=== PATIENT | male | born 1950 | race Caucasian/White ===

== ENCOUNTER → 2018-03-08 | Outpatient (CLI) | payer MEDICARE, BC ==
[~2018-03-08] MED LIST: ASPI1TAB57 PO; GLUC100013 PO; IBUP200T47 PO; LATA0.002 EACH EYE; LISI10TA3 PO; MULT-65 PO; PSYLPOW4 PO; VITA200T10 PO; VITA500C18 PO
[2018-03-08 12:14] LABS: HEMATOCRIT 45.3 % (39.0-51.0); HEMOGLOBIN 15.6 GM/DL (13.0-17.0); MEAN CELL VOLUME 92.5 FL (80.0-100.0); MEAN CORPUSCULAR HEMOGLOBIN 31.9 PG (27.0-34.0); MEAN CORPUSCULAR HGB CONC 34.5 % (32.0-36.0); MEAN PLATELET VOLUME 7.5 FL (7.0-11.0); PLATELET COUNT 185 TH/MM3 (150-450); RED CELL DISTRIBUTION WIDTH 13.3 % (11.6-17.2); WHITE BLOOD COUNT 9.9 TH/MM3 (4.0-11.0)
[2018-03-08 12:18] LABS: BILIRUBIN, URINE NEG (NEG); BLOOD, URINE NEG (NEG); GLUCOSE,URINE NEG (NEG); HYALINE CAST, URINE 2 /lpf (RARE); KETONE, URINE TRACE mg/dL (NEG); MUCUS URINE FEW /lpf (OCC); NITRITE,URINE NEG (NEG); PH, URINE 5.5 (5.0-8.5); URINE COLOR YELLOW (YELLW/STRAW); URINE LEUKOCYTE ESTERASE NEG (NEG)
[2018-03-08 12:42] LABS: CALCIUM 9.5 MG/DL (8.5-10.1); CREATININE 0.98 MG/DL (0.60-1.30)
--- NOTE | 2018-03-08 19:35 | EKG ---
Date Performed: 03/08/2018 Time Performed: 11:37:10 PTAGE: 67 years EKG: Sinus rhythm NORMAL ECG NO PREVIOUS TRACING DOCTOR: Salomon Lloyd Interpretating Date/Time 03/08/2018 19:31:23
== END ==
LOC: CPRE 11:16
PROVIDERS: ATTEND Orthopaedic Surgery
DX: Z01.812 Encounter for preprocedural laboratory examination (principal); Z01.810 Encounter for preprocedural cardiovascular examination; M79.609 Pain in unspecified limb; M17.11 Unilateral primary osteoarthritis, right knee; I10 Essential (primary) hypertension
CPT/HCPCS: 36415; 80048; 81001; 85027; 85610; 85730; 93005

== ENCOUNTER 2018-03-19 05:20 | Inpatient (IN) | payer MEDICARE, BC ==
[~2018-03-19] VITALS: Ht 180.3 cm; Wt 113.2 kg
[~2018-03-19 05:20] MED LIST changes: -LATA0.002 EACH EYE
[2018-03-19] MEDS ORDERED: LATA0.002 EACH EYE (05:43)
[2018-03-19] MEDS ORDERED: SODIUM CHLORID 0.9% 500 ML IV PRN (05:45)
[2018-03-19] MEDS ORDERED: LACTATED RINGER'S 1000 ML IV PRN (05:45)
[2018-03-19] MEDS ORDERED: CHLORHEXIDINE GLUCONATE 4% SOLN 120 ML BTL TOPICAL SCH (05:45)
[2018-03-19] MEDS ORDERED: ceFAZolin 2 GM PREMIX 50 ML IV SCH (05:45)
[2018-03-19] MEDS ORDERED: METOPROLOL TARTRATE 25 MG TAB PO PRN (05:45)
[2018-03-19] MEDS ORDERED: CHLORHEXIDINE GLUCONATE 2 % 1 PACK (2 CLOTHS) TOPICAL PRN (05:45)
[2018-03-19] MEDS ORDERED: POVIDONE IODINE 5% (ANTISEPSIS KIT) 4 APPLICATIONS EACH NARE PRN (05:45)
[2018-03-19] MEDS ORDERED: FAT EMULSION 20% INJ 0 ML ONE (05:57)
[2018-03-19] MEDS ORDERED: TRANEXAMIC ACID IV SCH ×2 (06:00→10:00)
[2018-03-19] MEDS ORDERED: SODIUM CHLORIDE 0.9% IV SCH ×2 (06:00→10:00)
[2018-03-19] MEDS ORDERED: EXPAREL PERI-ARTICULAR INJECTION (TOTAL VOL. 100 ML) P-ARTICULR SCH ×2 (06:00)
[2018-03-19 06:03] VITALS: PULSE 90
[2018-03-19] MEDS ORDERED: MIDAZOLAM HCL 2 MG/2 ML VIAL ONE (06:07)
[2018-03-19] MEDS ORDERED: BUPIVACAINE LIPOSOME PF 1.3% 20 ML VIAL ONE (06:08)
[2018-03-19] MEDS ORDERED: GENTAMICIN SULFATE 80 MG/2 ML VIAL ONE (06:19)
[2018-03-19] MEDS ORDERED: ACETAMINOPHEN 1000 MG/100 ML 100 ML IV ONE (06:21)
[2018-03-19] MEDS ORDERED: FAMOTIDINE 20 MG/2 ML VIAL ONE (06:21)
[2018-03-19] MEDS ORDERED: ACETAMINOPHEN/HYDROcodone 325 MG/7.5 MG TAB PO PRN (09:30)
[2018-03-19] MEDS ORDERED: TRANEXAMIC ACID INJ 0 MG in SODIUM CHLORIDE 0.9% INJ 100 ML IV SCH (09:30)
[2018-03-19] MEDS ORDERED: ONDANSETRON HCL 4 MG/2 ML VIAL IVP PRN (09:30)
[2018-03-19] MEDS ORDERED: PSYLLIUM PO PRN (09:30)
[2018-03-19] MEDS ORDERED: ZOLPIDEM TARTRATE 5 MG TAB PO PRN (09:30)
[2018-03-19] MEDS ORDERED: MORPHINE SULFATE 4 MG/ML INJ IV PUSH PRN (09:30)
[2018-03-19] MEDS ORDERED: MAGNESIUM HYDROXIDE SUSP 30 ML CUP PO PRN (09:30)
--- NOTE | 2018-03-19 09:38 | PD.OP ---
Operative Report Date of Surgery: Mar 19, 2018 Preoperative Diagnosis: (1) Primary osteoarthritis of right knee Postoperative Diagnosis: (1) Primary osteoarthritis of right knee Procedure: Right total knee arthroplasty using Max Triathlon prosthesis (noncemented). Anesthesia: General endotracheal with supplemental adductor canal block regional and local with Exparel Surgeon: Home Mary MD Wood Heel Cementer(s): Jimmy Ward MD Operation and Findings: Indications and Findings: This 67-year-old man has had long-standing right knee arthritis that has been progressively worsening over the past several years. He had an anterior cruciate ligament reconstruction in the past. He has an ambulation tolerance now 1 block because of pain and has difficulty with stairs. He is only able to stand about 45 minutes because of the pain. Treatment has included anti-inflammatory agents and analgesics, activity modification, exercises and external supports. Physical findings showed scars about the knee with laxity especially medially, crepitation throughout the entire range of motion and tenderness in the knee. X-rays show severe osteoarthritis of the knee with loss of articular cartilage to bone on bone particularly in the medial compartment with tricompartmental osteophytes and evidence of prior anterior cruciate ligament reconstruction. Operative findings: There is severe osteoarthritis in the right knee with loss of articular cartilage to bone on bone in the medial compartment, erosion of the lateral femoral condyle and loss of articular cartilage there. In addition the patellofemoral articulation showed significant degenerative change with large osteophytes and cartilaginous disruption. Tunnels were evident from his reconstruction. The prosthesis used was a Max Triathlon prosthesis. The femur was a size 5, cruciate retaining, uncemented. The tibial baseplate was a size 6 Tritanium with a 11 mm, X3 polyethylene, cruciate retaining spacer. The patella was a size 35 mm asymmetric Tritanium backed. The cement was Symplex.. The patient was brought to the clean-air operating suite. A general endotracheal anesthetic was administered as well as a regional anesthetic by abductor canal block. The position was supine with a small bolster under the hip on the operative side. A pneumatic tourniquet was applied to the upper thigh. The lower extremity was then prepped with alcohol, Hibiclens and ChloraPrep and draped in the usual manner with the knee draped free. An appropriate timeout procedure was carried out. An incision was made from about 3 fingerbreadths above the superior medial pole of patella down the tibial tubercle on the medial side. The incision was deepened through the subcutaneous tissue to the retinacular structures which were exposed medially and laterally. A medial retinacular incision was then made from the superior middle pole of patella down the tibial tubercle and up into the quadriceps tendon splitting it longitudinally and the medial one third. The patella was reflected. The infrapatellar fat pad was debulked. The anterior cruciate ligament was excised. Medial and lateral meniscectomies were initiated. Fenestrations were made in the distal femur and proximal tibia for intramedullary referencing guides. The distal femoral cutting guide and jig were then assembled for a 5, 8 mm cut. When this was fit position and placed cutting block was stabilized with pins. The jig was removed. The distal femoral cut was then completed with the oscillating saw. The sizing guide was then positioned in place along Whitesides line and the epicondylar axis and stabilized with pins. The femoral size was then determined as noted above. The 4-in-1 cutting block was then positioned in place. Anterior and posterior cuts were made followed by posterior and anterior chamfer cuts taking care to prevent injury to ligamentous structures. Osteophytes were then trimmed from the distal femur. A bone plug was then placed into the fenestration of the distal femur. The proximal tibia was then exposed. The medial and lateral meniscectomies were completed. The proximal tibial cutting guide was then positioned in place and stabilized with a pin for rotation. The depth of cut was then verified with a stylus off the lateral side. The cutting block was stabilized with pins. The jig was removed. The depth of cut was then verified and adjusted appropriately with the use of the spacer block. The proximal tibial cut was then made with the oscillating saw taking care to prevent injury to neurovascular and ligamentous structures. Proximal tibial bone was removed. Local anesthetic was administered with Exparel in the posterior capsule. The tibial baseplate trial was then positioned in place. After verifying the appropriate size, the base plate trial was positioned in place along with its spacer. The femoral component was then impacted into place. The alignment was checked. The tibial baseplate was then pinned in place on the tibia. Attention was directed to the patella. The patella drill guide was positioned in place for the appropriate sized patella. Patellar drilling was then carried out. The trial patella was positioned in place. The knee was taken through a range of motion which was easily 0 extension to 140 with pressure and 135 with gravity. The patella trial was removed. The femoral drill holes were made. The femoral trials were removed. The tibial spacer was removed. A bone plug was placed into the proximal tibia. The tibial punch was impacted through the proximal tibial punch guide. This was all removed followed by placement of the tibial drill guide. The tibial drill holes were then made. The guide was removed. The cut ends of bone were then cleaned with pulse lavage. The tibial baseplate was then impacted into place and seated appropriately. The spacer was inserted. The the femoral component was then impacted into place and seated appropriately. The patella component was then seated with the patellar vice and tightened appropriately. This was not tightened as well as would be expected. It was then removed. After cleansing the fenestrations, a trial of placement of the patella was again carried out however this was not as tight as it should have been. For this reason, it was decided to cement the patella. The patella was cleaned with pulse lavage and then dried. The implant was cemented to the posterior surface of the patella and held with a patella clamp. The knee was taken through a range of motion which was comparable to the previous range of motion with excellent stability in flexion and extension and appropriate patellofemoral tracking. The remainder of the Exparel was then injected throughout the knee as a local anesthetic. Drains were brought out the superior lateral aspect of the suprapatellar pouch. Wound closure then commenced using 0 Vicryl interrupted [id number] sutures for the capsular and fascial structures, 2-0 Vicryl interrupted simple sutures with buried knots for the subcutaneous tissues and 4-0 Monocryl, tenuous subcuticular closure for the skin. The wound was then dressed with Dermabond Prineo followed by Optifoam silver impregnated dressing. Sterile soft roll with a cooling pad and Dao bandage from the base of the toes to mid thigh were then applied. Patient was then transferred from the operating room to the recovery room in satisfactory condition having tolerated procedure well. Counts are correct. Specimens: None. Estimated blood loss: 300 mL Carla Mary MD ([place]) Mar 19, 2018 09:38
[2018-03-19] MEDS ORDERED: HYDR-3580 PO (09:44)
[2018-03-19] MEDS ORDERED: ECASA81 PO (09:44)
--- NOTE | 2018-03-19 09:49 | HHI.FF ---
Face to Face Verification Diagnosis: (1) Status post total right knee replacement Physical Therapy Gait training Knee: Total knee, Protocol: Right, Gait training, Full weight bearing Right LE Weight Bearing: WB as tolerated Right LE Range of Motion: Active ROM (Active, active assisted and passive range of motion. Range of motion goal is 0 extension to 135 of flexion.) Nursing Nursing: Dressing changes Dressing Changes: Daily dressing change, Coverderm/Primapore Additional Instructions Do not remove Dermabond Prineo. I have seen patient James De La Cruz on 03/19/18. My clinical findings support the need for the requested home health care services because: Ltd mobility - disease progression Limited ability to care for self High risk of falls I certify that my clinical findings support that this patient is homebound because: Post-op weakness Unsteady gait/balance Unsafe to leave home unassisted Carla Mary MD ([place]) Mar 19, 2018 09:49
[2018-03-19] MEDS ORDERED: *morphine SULFATE 4 MG/ML PERIprocedure ONLY ONE ×2 (10:00→10:10)
--- NOTE | 2018-03-19 10:53 | RADRPT ---
EXAM DATE/TIME: 03/19/2018 11:19 [place] COMPARISON: No previous studies available for comparison. INDICATIONS : Post-op right knee. MEDICAL HISTORY : None. SURGICAL HISTORY : None. ENCOUNTER: Initial ACUITY: 1 day PAIN SCORE: 0/10 LOCATION: Right Knee. FINDINGS: 2 views of the knee show a total knee prosthesis in good position. No fracture or dislocation is obse rved. Soft tissue swelling is noted. Surgical drain observed. CONCLUSION: Knee arthroplasty in good position. Erasmo Rojas Jr., MD on March 19, 2018 at 10:50 Board Certified Radiologist. This report was verified electronically.
[2018-03-19] MEDS ORDERED: LACTATED RINGER'S 1000 ML INJ 2,000 ML IV ONE (12:00)
[2018-03-19] MEDS ORDERED: NEOSTIGMINE 5 MG/5 ML SYRINGE IV PUSH ONE (12:00)
[2018-03-19] MEDS ORDERED: LIDOCAINE HCL 1% PF 5 ML AMPULE OTHER ONE (12:00)
[2018-03-19] MEDS ORDERED: ROCURONIUM INJ 50 MG/5 ML SYRINGE IV PUSH ONE (12:00)
[2018-03-19] MEDS ORDERED: DEXAMETHASONE SOD PHOS 4 MG/ML VIAL IV ONE (12:00)
[2018-03-19] MEDS ORDERED: ePHEDrine/NS 25 MG/5 ML SYRINGE IV ONE (12:00)
[2018-03-19] MEDS ORDERED: GLYCOPYRROLATE 1 MG/5 ML SYRINGE IV PUSH ONE (12:00)
[2018-03-19] MEDS ORDERED: PROPOFOL 200 MG/20 ML AMP IV ONE (12:00)
[2018-03-19] MEDS ORDERED: KETOROLAC TROMETHAMINE 30 MG/ML (IVP) VIAL IV PUSH ONE (12:00)
[2018-03-19] MEDS ORDERED: ONDANSETRON HCL 4 MG/2 ML VIAL IV ONE (12:00)
[2018-03-19] MEDS ORDERED: PHENYLEPH/NS 1000 MCG/10 ML SYR IV ONE (12:00)
[2018-03-19] MEDS: ACETAMINOPHEN/HYDROcodone 325 MG/7.5 MG TAB PO PRN (12:04)
[2018-03-19] MEDS: LACTATED RINGER'S 1000 ML INJ 1,000 ML IV SCH (12:06)
[2018-03-19] MEDS ORDERED: Post-op Orders (for Pharmacy) XX ONE (12:10)
[2018-03-19] MEDS ORDERED: DO NOT ADM ANY ANTICOAGULANT DRUGS PRN (13:00)
[2018-03-19] MEDS: KETOROLAC TROMETHAMINE 30 MG/ML (IVP) VIAL IVP SCH ×2 (15:00→21:56)
--- NOTE | 2018-03-19 15:31 | PD.CONS ---
[facility] Hospitalists Consult Requested By Dr. Mary Reason for Consult Medical management Primary Care Physician Vasquez [facility] Diagnoses: (1) Hypertension (2) Primary osteoarthritis of right knee (3) Status post total right knee replacement History of Present Illness The patient is a 67-year-old male admitted for right total knee arthroplasty. Hospitalist consult was requested for medical management. Patient states that his only medical problem is hypertension, which is well controlled. He denies pain currently. Denies nausea, vomiting, chest pain, dyspnea. Review of Systems Constitutional: DENIES: Fever, Chills, Night Sweats Eyes: DENIES: Blurred vision, Vision loss Ears, nose, mouth, throat: DENIES: Hearing loss Respiratory: DENIES: Cough, Wheezing, Sputum production, Shortness of breath Cardiovascular: DENIES: Chest pain, Palpitations, Dyspnea on Exertion, Lower Extremity Edema Gastrointestinal: DENIES: Abdominal pain, Constipation, Diarrhea, Nausea, Vomiting Genitourinary: DENIES: Urinary frequency, Urinary incontinence, Urgency, Hematuria, Dysuria, Nocturia Musculoskeletal: COMPLAINS OF: Joint pain, DENIES: Muscle aches Integumentary: DENIES: Pruritus, Rash Hematologic/lymphatic: DENIES: Bruising Neurologic: DENIES: Headache Past Family Social History Allergies: Coded Allergies: No Known Allergies (Unverified , 03/19/18) Past Medical History Hypertension Glaucoma Past Surgical History Tonsillectomy Right knee arthroscopic surgery Right total knee arthroplasty, 03/19/18 Reported Medications Lisinopril 10 mg daily Aspirin 81 mg daily Ibuprofen as needed Latanoprost eyedrops nightly Psyllium powder as needed Vitamin C daily Vitamin E daily Multivitamin daily Glucosamine daily Family History Heart disease Father had throat cancer Mother had emphysema. Social History Denies tobacco or illicit drug use. Drinks 3-4 alcoholic beverages per day. Physical Exam Vital Signs Vital Signs Date Time Temp Pulse Resp B/P (MAP) Pulse Ox O2 Delivery O2 Flow Rate FiO2 03/19/18 11:00 80 15 112/71 (85) 100 Nasal Cannula 2 03/19/18 10:45 76 15 110/76 (87) 100 Nasal Cannula 2 03/19/18 10:30 71 17 120/74 (89) 100 Nasal Cannula 3 03/19/18 10:15 70 15 111/66 (81) 98 Nasal Cannula 3 03/19/18 10:00 72 15 122/68 (86) 98 Nasal Cannula 3 03/19/18 09:48 97.7 85 15 128/62 (84) 100 Nasal Cannula 3 03/19/18 06:03 90 03/19/18 06:03 Nasal Cannula 2 03/19/18 05:45 99.4 87 18 164/96 (118) 98 Physical Exam GENERAL: Well-nourished, well-developed male in no acute distress. Sitting up in a chair. HEENT: Normocephalic, atraumatic. Pupils equal, round and reactive. Extraocular movements intact. No scleral icterus. No injection or drainage. Oropharynx is clear. Mucous membranes are moist. CARDIOVASCULAR: Regular rate and rhythm without murmurs, gallops, or rubs. RESPIRATORY: Clear to auscultation. No wheezes, rales, or rhonchi. Breathing is non-labored. GASTROINTESTINAL: Abdomen soft, non-tender, nondistended. EXTREMITIES: No lower extremity edema. No calf tenderness. Right lower extremity bandaged. SCD on left lower extremity. PSYCH: Alert and oriented x 3. Imaging Last Impressions Knee X-Ray 03/19/18920 Signed Impressions: Service Date/Time: Monday, March 19, 2018 11:19 - CONCLUSION: Knee arthroplasty in good position. Erasmo Rojas Jr., MD Assessment and Plan Assessment and Plan 1. Osteoarthritis, right knee: Status post right total knee arthroplasty. Management per orthopedic surgery. Continue pain control, physical therapy, bowel regimen. 2. Hypertension: Blood pressure is well controlled. Continue lisinopril. 3. Glaucoma: Continue Xalatan eyedrops. 4. DVT prophylaxis: Aspirin. Ladarius Olsen MD Mar 19, 2018 15:31
[2018-03-19 15:52] VITALS: O2SAT 95
[2018-03-19 15:53] VITALS: O2SAT 99
[2018-03-19 16:00] VITALS: BP 109/70; PULSE 91; RESP 18; TEMP 98.7; O2SAT 95
[2018-03-19 20:30] VITALS: BP 116/70; PULSE 88; RESP 16; TEMP 98.1; O2SAT 97
[2018-03-19] MEDS ORDERED: LATANOPROST 0.005% OPHT SOLN 2.5 ML BTL EACH EYE SCH (21:00)
[2018-03-20 00:10] VITALS: BP 118/68; PULSE 81; RESP 16; TEMP 97.3; O2SAT 98
[2018-03-20] MEDS: ACETAMINOPHEN/HYDROcodone 325 MG/7.5 MG TAB PO PRN ×2 (01:41→07:24)
[2018-03-20] MEDS: LACTATED RINGER'S 1000 ML INJ 1,000 ML IV SCH (01:45)
[2018-03-20] MEDS: KETOROLAC TROMETHAMINE 30 MG/ML (IVP) VIAL IVP SCH ×2 (03:48→07:26)
[2018-03-20 04:30] VITALS: BP 98/55; PULSE 83; RESP 16; TEMP 97.4; O2SAT 96
--- NOTE | 2018-03-20 06:59 | PD.ORT.PN ---
Subjective Post Op Day #: 1 Subjective Remarks He is doing well. He has minimal complaints related to his knee. He indicates that the physical therapist was more apprehensive about him walking than he was. Range of Motion Not recorded. Distance Walked 10 feet with PT limited by dizziness followed by 185 feet and then again 25 feet. Objective Vitals Vital Signs Date Time Temp Pulse Resp B/P (MAP) Pulse Ox O2 Delivery O2 Flow Rate FiO2 03/20/18 04:30 97.4 83 16 98/55 (69) 96 03/20/18 00:10 97.3 81 16 118/68 (85) 98 03/19/18 20:30 98.1 88 16 116/70 (85) 97 03/19/18 16:00 98.7 91 18 109/70 (83) 95 03/19/18 15:53 99 21 03/19/18 15:52 95 21 03/19/18 11:45 98.4 82 17 127/75 (92) 100 Nasal Cannula 2 03/19/18 11:30 84 15 120/73 (89) 100 Nasal Cannula 2 03/19/18 11:00 80 15 112/71 (85) 100 Nasal Cannula 2 03/19/18 10:45 76 15 110/76 (87) 100 Nasal Cannula 2 03/19/18 10:30 71 17 120/74 (89) 100 Nasal Cannula 3 03/19/18 10:15 70 15 111/66 (81) 98 Nasal Cannula 3 03/19/18 10:00 72 15 122/68 (86) 98 Nasal Cannula 3 03/19/18 09:48 97.7 85 15 128/62 (84) 100 Nasal Cannula 3 I/O 03/19/18 03/19/18 03/19/18 03/20/18 03/20/18 03/20/18 07:00 15:00 23:00 07:00 15:00 23:00 Intake Total 2320 ml 480 ml Output Total 350 ml 120 ml 300 ml Balance 1970 ml -120 ml 180 ml Intake Oral 120 ml 480 ml IV Total 2000 ml Other 200 ml Output Urine Total 0 ml 300 ml Drainage Total 50 ml 120 ml Estimated Blood Loss 300 ml # Bowel Movements 0 Imaging Last 24 hours Impressions Knee X-Ray 03/19/18 0921 Signed Impressions: Service Date/Time: Monday, March 19, 2018 11:19 - CONCLUSION: Knee arthroplasty in good position. Erasmo Rojas Jr., MD Objective Remarks He is sitting out of bed in a chair comfortably. His neurovascular status is intact. The dressing is dry and intact. Assessment & Plan Ortho Post Op Day #: 1 Problem List: (1) Primary osteoarthritis of right knee ICD Codes: M17.11 - Unilateral primary osteoarthritis, right knee Status: Resolved (2) Status post total right knee replacement ICD Codes: Z96.651 - Presence of right artificial knee joint Plan: Continue postop care and PT. Assessment and Plan Condition: Good. Orthopedically stable. DVT prophylaxis: TEDs, aspirin, sequentials. Discharge plans: Home with home health care. An appointment was scheduled through the office. Prescriptions: [place] 7.5/325 Carla Mary MD ([place]) Mar 20, 2018 06:59
[2018-03-20 07:06] LABS: HEMATOCRIT 31.9 % (39.0-51.0); HEMOGLOBIN 11.3 GM/DL (13.0-17.0)
--- NOTE | 2018-03-20 07:33 | HHI.DS ---
Discharge Summary Admission Date Mar 19, 2018 at 05:20 Discharge Date: Mar 20, 2018 Admitting Diagnosis Primary osteoarthritis, right knee. Diagnosis: (1) Primary osteoarthritis of right knee Diagnosis: Principal ICD Codes: M17.11 - Unilateral primary osteoarthritis, right knee Status: Resolved (2) Status post total right knee replacement Diagnosis: Principal ICD Codes: Z96.651 - Presence of right artificial knee joint Procedures Right total knee arthroplasty using [place] Triathlon prosthesis (uncemented) on 03/19/2018. Brief History This is a 67 year old male patient has had long-standing arthritis in his right knee unresponsive to conservative measures as detailed in the history and physical examination. He had genu varum with medial laxity and palpable osteophytes. X-rays show loss of articular cartilage to [id number] medial compartment with osteophytes and eburnation. CBC/BMP: 03/20/18 0446 Significant Findings Laboratory Tests Test 03/20/18 04:46 Hemoglobin 11.3 GM/DL (13.0-17.0) Hematocrit 31.9 % (39.0-51.0) Imaging Last 72 hours Impressions Knee X-Ray 03/19/18 0921 Signed Impressions: Service Date/Time: Monday, March 19, 2018 11:19 - CONCLUSION: Knee arthroplasty in good position. Erasmo Rojas Jr., MD PE at Discharge He is sitting out of bed in a chair comfortably. His neurovascular status is intact. The dressing is dry and intact. Hospital Course The patient was admitted as noted above. The above noted operative procedure was carried out that day. Preoperatively prophylactic antibiotics were administered Ancef according to protocol. These were continued postoperatively. The patient also received tranexamic acid to help with hemostasis according to protocol. In the postanesthesia care unit a continuous passive motion device was initiated. Also initiated were mechanical methods of DVT prophylaxis in the form of LAMONT stockings and sequentials. Physical therapy was initiated on the day of surgery. On postoperative day #1 physical therapy continued. The use of the continuous passive motion device continued. DVT prophylaxis with aspirin 81 mg twice daily was initiated at this time. The patient continued physical therapy throughout the hospitalization. The distance walked and range of motion improved throughout the hospitalization. The patient was discharged on postoperative day 1 with the disposition being to home with home health care. An appointment for follow-up was made prior to admission. Pt Condition on Discharge: Good Discharge Disposition: Disch w/ Home Health Serv Discharge Instructions Diet Instructions: As Tolerated, No Restrictions Activities You Can Perform: Full Weight Bearing, Shower Only-No Bath Activities to Avoid: Lifting/Bending, Strenuous Activity, Bathing, Driving Follow up Referrals: Orthopedics with Carla Mary MD ([place]) New Medications: Aspirin (Aspirin DR) 81 Mg Tabdr 81 MG PO BID for Prevent Blood Clot for 30 Days, #60 TAB Hydrocodone/Acetaminophen (Hydrocodone-Acetamin 7.5-325) 7.5 Mg-325 Mg Tablet 1 TAB PO Q4H PRN for PAIN SCALE 1 TO 10, #30 TAB Continued Medications: Ascorbic Acid ER (Vitamin C Sr) 500 Mg Caper 500 MG PO DAILY for Nutritional Supplement, CAP 0 Refills Glucosamine (Glucosamine) 1,000 Mg Cap 2000 MG PO DAILY for Herbal Supplements, CAP 0 Refills Ibuprofen (Ibuprofen) 200 Mg Tab 200 MG PO Q4H PRN for PAIN SCALE 1 TO 10, TAB 0 Refills Latanoprost Opth Drops (Latanoprost Opth Drops) 0.005% Drops 1 DROP EACH EYE HS for Glaucoma, #2.5 ML 0 Refills Refrigerate until opened. Lisinopril (Lisinopril) 10 Mg Tab 10 MG PO DAILY, #30 TAB 0 Refills Multiple Vitamin (Multi-Vitamin Daily) 1 Tab Tab 1 TAB PO DAILY for Nutritional Supplement, TAB 0 Refills Psyllium Powder (Psyllium Powder) 100 % Pow 1 SCOOP PO TID PRN for CONSTIPATION, CONTAINER 0 Refills 1 rounded TEASPOON in 8 oz of liquid at the first sign of irregularity. Vitamin E Mixed (Vitamin E) 200 Unit Tablet 1 TAB PO DAILY Discontinued Medications: Aspirin (Aspirin 81) 81 Mg Tabdr 81 MG PO DAILY, TAB 0 Refills Carla Mary MD ([place]) Mar 20, 2018 07:33
[2018-03-20 08:02] VITALS: BP 126/78; PULSE 82; RESP 17; TEMP 98.3; O2SAT 99
[2018-03-20] MEDS ORDERED: ASPIRIN EC 81 MG TABEC PO SCH (08:45)
[2018-03-20] MEDS ORDERED: NON-FORMULARY DRUG (Ascorbic Acid ER (Vitamin C Sr) 500 MG) PO SCH (09:00)
[2018-03-20] MEDS ORDERED: VITAMIN E MIXED PO SCH (09:00)
[2018-03-20] MEDS ORDERED: LISINOPRIL 10 MG TAB PO SCH (09:00)
[2018-03-20] MEDS ORDERED: MULTIVITAMIN TAB PO SCH (09:00)
[2018-03-20] MEDS ORDERED: GLUCOSAMINE 2000 MG PO SCH (09:00)
--- NOTE | 2018-03-20 11:33 | HHI.PR ---
Subjective Remarks The patient is a 67-year-old male admitted for right total knee arthroplasty. Hospitalist consult was requested for medical management. Patient states that his only medical problem is hypertension, which is well controlled. He denies pain currently. Denies nausea, vomiting, chest pain, dyspnea. 03-20 PATIENT TO GO HOME LATER TODAY WITH [facility] RN AND PT AND CM No new complaints Objective Vitals Vital Signs Date Time Temp Pulse Resp B/P (MAP) Pulse Ox O2 Delivery O2 Flow Rate FiO2 03/20/18 08:26 20 03/20/18 08:26 20 03/20/18 08:02 98.3 82 17 126/78 (94) 99 03/20/18 04:30 97.4 83 16 98/55 (69) 96 03/20/18 00:10 97.3 81 16 118/68 (85) 98 03/19/18 20:30 98.1 88 16 116/70 (85) 97 03/19/18 16:00 98.7 91 18 109/70 (83) 95 03/19/18 15:53 99 21 03/19/18 15:52 95 21 03/19/18 11:45 98.4 82 17 127/75 (92) 100 Nasal Cannula 2 03/19/18 11:30 84 15 120/73 (89) 100 Nasal Cannula 2 I/O 03/19/18 03/19/18 03/19/18 03/20/18 03/20/18 03/20/18 07:00 15:00 23:00 07:00 15:00 23:00 Intake Total 2320 ml 480 ml Output Total 350 ml 120 ml 480 ml Balance 1970 ml -120 ml 0 ml Intake Oral 120 ml 480 ml IV Total 2000 ml Other 200 ml Output Urine Total 0 ml 300 ml Drainage Total 50 ml 120 ml 180 ml Estimated Blood Loss 300 ml # Bowel Movements 0 Result Diagram: 03/20/18 0446 Other Results Laboratory Tests Test 03/20/18 04:46 Hemoglobin 11.3 GM/DL Hematocrit 31.9 % Imaging Last Impressions Knee X-Ray 03/19/18 0923 Signed Impressions: Service Date/Time: Monday, March 19, 2018 11:19 - CONCLUSION: Knee arthroplasty in good position. Erasmo Rojas Jr., MD Objective Remarks GENERAL: Awake alert and oriented 3 talkative and cooperative appears stated age SKIN: Warm and dry. HEAD: Atraumatic. Normocephalic. EYES: Pupils equal and round. No scleral icterus. No injection or drainage. Extraocular muscles intact wears glasses ENT: No nasal bleeding or discharge. Mucous membranes pink and moist. Tongue is midline NECK: Trachea midline. No JVD. Supple CARDIOVASCULAR: Regular rate and rhythm. S1-S2 no S3 or S4 RESPIRATORY: No accessory muscle use. Clear to auscultation. Breath sounds equal bilaterally. GASTROINTESTINAL: Abdomen soft, non-tender, nondistended. Hepatic and splenic margins not palpable. MUSCULOSKELETAL: Extremities without clubbing, cyanosis, or edema. No obvious deformities. Right knee is dressed NEUROLOGICAL: Awake and alert. No obvious cranial nerve deficits. Motor grossly within normal limits. Five out of 5 muscle strength in the arms and legs. Normal speech. PSYCHIATRIC: Appropriate mood and affect; insight and judgment normal. Procedures Date of Surgery: Mar 19, 2018 Preoperative Diagnosis: (1) Primary osteoarthritis of right knee Postoperative Diagnosis: (1) Primary osteoarthritis of right knee Procedure: Right total knee arthroplasty using Darrel Triathlon prosthesis (noncemented). Anesthesia: General endotracheal with supplemental adductor canal block regional and local with Exparel Surgeon: Home Mary MD Director Of Learning(s): Jimmy Ward MD Operation and Findings: Indications and Findings: This 67-year-old man has had long-standing right knee arthritis that has been progressively worsening over the past several years. He had an anterior cruciate ligament reconstruction in the past. He has an ambulation tolerance now 1 block because of pain and has difficulty with stairs. He is only able to stand about 45 minutes because of the pain. Treatment has included anti-inflammatory agents and analgesics, activity modification, exercises and external supports. Physical findings showed scars about the knee with laxity especially medially, crepitation throughout the entire range of motion and tenderness in the knee. X-rays show severe osteoarthritis of the knee with loss of articular cartilage to bone on bone particularly in the medial compartment with tricompartmental osteophytes and evidence of prior anterior cruciate ligament reconstruction. Operative findings: There is severe osteoarthritis in the right knee with loss of articular cartilage to bone on bone in the medial compartment, erosion of the lateral femoral condyle and loss of articular cartilage there. In addition the patellofemoral articulation showed significant degenerative change with large osteophytes and cartilaginous disruption. Tunnels were evident from his reconstruction. The prosthesis used was a Waldo Triathlon prosthesis. The femur was a size 5, cruciate retaining, uncemented. The tibial baseplate was a size 6 Tritanium with a 11 mm, X3 polyethylene, cruciate retaining spacer. The patella was a size 35 mm asymmetric Tritanium backed. The cement was Symplex.. The patient was brought to the clean-air operating suite. A general endotracheal anesthetic was administered as well as a regional anesthetic by abductor canal block. The position was supine with a small bolster under the hip on the operative side. A pneumatic tourniquet was applied to the upper thigh. The lower extremity was then prepped with alcohol, Hibiclens and ChloraPrep and draped in the usual manner with the knee draped free. An appropriate timeout procedure was carried out. An incision was made from about 3 fingerbreadths above the superior medial pole of patella down the tibial tubercle on the medial side. The incision was deepened through the subcutaneous tissue to the retinacular structures which were exposed medially and laterally. A medial retinacular incision was then made from the superior middle pole of patella down the tibial tubercle and up into the quadriceps tendon splitting it longitudinally and the medial one third. The patella was reflected. The infrapatellar fat pad was debulked. The anterior cruciate ligament was excised. Medial and lateral meniscectomies were initiated. Fenestrations were made in the distal femur and proximal tibia for intramedullary referencing guides. The distal femoral cutting guide and jig were then assembled for a 5, 8 mm cut. When this was fit position and placed cutting block was stabilized with pins. The jig was removed. The distal femoral cut was then completed with the oscillating saw. The sizing guide was then positioned in place along Whitesides line and the epicondylar axis and stabilized with pins. The femoral size was then determined as noted above. The 4-in-1 cutting block was then positioned in place. Anterior and posterior cuts were made followed by posterior and anterior chamfer cuts taking care to prevent injury to ligamentous structures. Osteophytes were then trimmed from the distal femur. A bone plug was then placed into the fenestration of the distal femur. The proximal tibia was then exposed. The medial and lateral meniscectomies were completed. The proximal tibial cutting guide was then positioned in place and stabilized with a pin for rotation. The depth of cut was then verified with a stylus off the lateral side. The cutting block was stabilized with pins. The jig was removed. The depth of cut was then verified and adjusted appropriately with the use of the spacer block. The proximal tibial cut was then made with the oscillating saw taking care to prevent injury to neurovascular and ligamentous structures. Proximal tibial bone was removed. Local anesthetic was administered with Exparel in the posterior capsule. The tibial baseplate trial was then positioned in place. After verifying the appropriate size, the base plate trial was positioned in place along with its spacer. The femoral component was then impacted into place. The alignment was checked. The tibial baseplate was then pinned in place on the tibia. Attention was directed to the patella. The patella drill guide was positioned in place for the appropriate sized patella. Patellar drilling was then carried out. The trial patella was positioned in place. The knee was taken through a range of motion which was easily 0 extension to 140 with pressure and 135 with gravity. The patella trial was removed. The femoral drill holes were made. The femoral trials were removed. The tibial spacer was removed. A bone plug was placed into the proximal tibia. The tibial punch was impacted through the proximal tibial punch guide. This was all removed followed by placement of the tibial drill guide. The tibial drill holes were then made. The guide was removed. The cut ends of bone were then cleaned with pulse lavage. The tibial baseplate was then impacted into place and seated appropriately. The spacer was inserted. The the femoral component was then impacted into place and seated appropriately. The patella component was then seated with the patellar vice and tightened appropriately. This was not tightened as well as would be expected. It was then removed. After cleansing the fenestrations, a trial of placement of the patella was again carried out however this was not as tight as it should have been. For this reason, it was decided to cement the patella. The patella was cleaned with pulse lavage and then dried. The implant was cemented to the posterior surface of the patella and held with a patella clamp. The knee was taken through a range of motion which was comparable to the previous range of motion with excellent stability in flexion and extension and appropriate patellofemoral tracking. The remainder of the Exparel was then injected throughout the knee as a local anesthetic. Drains were brought out the superior lateral aspect of the suprapatellar pouch. Wound closure then commenced using 0 Vicryl interrupted [id number] sutures for the capsular and fascial structures, 2-0 Vicryl interrupted simple sutures with buried knots for the subcutaneous tissues and 4-0 Monocryl, tenuous subcuticular closure for the skin. The wound was then dressed with Dermabond Prineo followed by Optifoam silver impregnated dressing. Sterile soft roll with a cooling pad and Dao bandage from the base of the toes to mid thigh were then applied. Patient was then transferred from the operating room to the recovery room in satisfactory condition having tolerated procedure well. Counts are correct. Specimens: None. Estimated blood loss: 300 mL Carla Mary MD (Charles) Mar 19, 2018 09:38 Medications and IVs Current Medications Lactated Ringer's 1,000 ml @ 30 mls/hr Q24H PRN IV SEE LABEL COMMENTS Last administered on 03/19/18at 05:45; Start 03/19/18 at 05:45; Stop 03/22/18 at 05:44 Sodium Chloride 500 ml @ 30 mls/hr [id number] PRN IV SEE LABEL COMMENTS; Start at 05:45; Stop 03/22/18 at 05:44 Metoprolol Tartrate (Lopressor) 25 mg CRITICAL POWER TECHNICIAN PRN PO SEE LABEL COMMENTS; Start 03/19/18 at 05:45; Stop 03/22/18 at 05:44 Povidone Iodine (Betadine 5% Antisepsis Kit) 1 applic CRITICAL POWER TECHNICIAN PRN EACH NARE SEE LABEL COMMENTS Last administered on 03/19/18at 06:00; Start 03/19/18 at 05:45 ; Stop 03/22/18 at 05:44 Chlorhexidine Gluconate (Chlorhexidine 2% Cloth) 3 pack CRITICAL POWER TECHNICIAN PRN TOPICAL SEE LABEL COMMENTS Last administered on 03/19/18at 05:30; Start 03/19/18 at 05:45 ; Stop 03/22/18 at 05:44 Chlorhexidine Gluconate (Hibiclens 4% Top Soln) 1 applic ONCE TOPICAL Last administered on 03/19/18at 06:00; Start 03/19/18 at 05:45; Stop 03/22/18 at 05:44 Cefazolin Sodium/ Dextrose 50 ml @ 100 mls/hr ONCE IV Last administered on at 06:58; Start 03/19/18 at 05:45; Stop 03/19/18 at 21:00; Status DC Tranexamic Acid 1132 mg/Sodium Chloride 111.32 ml @ 200 mls/ hr ONCE IV Last administered on 03/19/18at 06:47; Start 03/19/18 at 06:00; Stop 03/19/18 at 21:00 ; Status DC Tranexamic Acid 1132 mg/Sodium Chloride 111.32 ml @ 200 mls/ hr ONCE IV ; Start 03/19/18 at 10:00; Stop 03/20/18 at 09:59; Status DC Bupivacaine Liposome 20 ml/ Sodium Chloride 100 ml @ 200 mls/hr ONCE P- ARTICULR Last administered on 03/19/18at 07:10; Start 03/19/18 at 06:00; Stop at 21:00; Status DC Fat Emulsion Intravenous 0 ml @ As Directed STK-MED ONCE .ROUTE ; Start at 05:57; Stop 03/19/18 at 05:58; Status DC Midazolam HCl (Versed Inj) 4 mg STK-MED ONCE .ROUTE Last administered on at 06:12; Start 03/19/18 at 06:07; Stop 03/19/18 at 06:08; Status DC Bupivacaine Liposome (Exparel Pf 1.3% Inj) 20 ml STK-MED ONCE .ROUTE ; Start at 06:08; Stop 03/19/18 at 06:09; Status DC Gentamicin Sulfate (Gentamicin Inj) 240 mg STK-MED ONCE .ROUTE Last administered on 03/19/18at 07:10; Start 03/19/18 at 06:19; Stop 03/19/18 at 06:20 ; Status DC Acetaminophen 100 ml @ As Directed STK-MED ONCE IV ; Start 03/19/18 at 06:21; Stop 03/19/18 at 06:22; Status DC Fentanyl Citrate (fentaNYL INJ) 100 mcg STK-MED ONCE .ROUTE ; Start 03/19/18 at 06:21; Stop 03/19/18 at 06:22; Status DC Famotidine (Pepcid Inj) 20 mg STK-MED ONCE .ROUTE ; Start 03/19/18 at 06:21; Stop 03/19/18 at 06:22; Status DC Fentanyl Citrate (fentaNYL INJ) 200 mcg STK-MED ONCE .ROUTE ; Start 03/19/18 at 06:32; Stop 03/19/18 at 06:33; Status DC Lactated Ringer's 1,000 ml @ 80 mls/hr [id number] IV Last administered on at 01:45; Start 03/19/18 at 12:00 Cefazolin Sodium 1000 mg/Sodium Chloride 100 ml @ 200 mls/hr Q6H IV Last administered on 03/20/18at 01:42; Start 03/19/18 at 13:00; Stop 03/20/18 at 01:29 ; Status DC Miscellaneous Information (Post-op Orders (for Pharmacy)) STAT ONCE XX ; Start 03/19/18 at 12:10; Stop 03/19/18 at 12:11; Status DC Morphine Sulfate (Morphine Inj) 4 mg Q3H PRN IV PUSH BREAKTHROUGH PAIN; Start 03/19/18 at 09:30 Acetaminophen/ Hydrocodone Bitart (Era 7.5-325 Mg) 1 tab Q4H PRN PO PAIN LESS THAN 5 ON SCALE Last administered on 03/20/18at 07:24; Start 03/19/18 at 09: 30 Acetaminophen/ Hydrocodone Bitart (Era 7.5-325 Mg) 2 tab Q4H PRN PO PAIN SCALE 5 TO 10 Last administered on 03/20/18at 11:22; Start 03/19/18 at 09:30 Ketorolac Tromethamine (Toradol Inj) 15 mg Q6H IVP Last administered on at 07:26; Start 03/19/18 at 15:00; Stop 03/21/18 at 09:01 Tranexamic Acid / Sodium Chloride 100 ml @ 200 mls/hr UNSCH IV ; Start at 09:30; Stop 03/19/18 at 09:59; Status UNV Ondansetron HCl (Zofran Inj) 4 mg Q6H PRN IVP NAUSEA OR VOMITING; Start at 09:30 Docusate Sodium (Colace) 100 mg BID PO ; Start 03/20/18 at 21:00 Zolpidem Tartrate (Ambien) 5 mg HS PRN PO SLEEP; Start 03/19/18 at 09:30 Magnesium Hydroxide (Milk Of Magnesia Liq) 30 ml DAILY PRN PO CONSTIPATION; Start 03/19/18 at 09:30 Aspirin (Ecotrin Ec) 81 mg BID PO Last administered on 03/20/18at 07:25; Start 03/20/18 at 08:45 Latanoprost (Xalatan 0.005% Opt Soln) 1 drop HS EACH EYE Last administered on 03/19/18at 21:00; Start 03/19/18 at 21:00 Lisinopril (Prinivil) 10 mg DAILY PO Last administered on 03/20/18at 07:24; Start 03/20/18 at 09:00 Non-Formulary Medication 500 mg DAILY PO ; Start 03/20/18 at 09:00; Stop at 09:00; Status DC Non-Formulary Medication 2,000 mg DAILY PO ; Start 03/20/18 at 09:00; Stop 03/20 at 09:00; Status DC Multivitamins (Theragran) 1 tab DAILY PO Last administered on 03/20/18at 07:24; Start 03/20/18 at 09:00 Non-Formulary Medication 1 scoop TID PRN PO CONSTIPATION; Start 03/19/18 at 09: 30; Stop 03/19/18 at 12:04; Status DC Non-Formulary Medication 1 tab DAILY PO ; Start 03/20/18 at 09:00; Stop at 09:00; Status DC Morphine Sulfate (*morphine INJ PERIprocedure ONLY) 4 mg STK-MED ONCE .ROUTE Last administered on 03/19/18at 10:00; Start 03/19/18 at 10:00; Stop 03/19/18 at 10:01; Status DC Morphine Sulfate (*morphine INJ PERIprocedure ONLY) 4 mg STK-MED ONCE .ROUTE Last administered on 03/19/18at 10:10; Start 03/19/18 at 10:10; Stop 03/19/18 at 10:11; Status DC Miscellaneous Information ALL NURSING DEPARTME... UNSCH PRN .XX SEE LABEL COMMENTS; Start 03/19/18 at 13:00; Stop 03/20/18 at 12:59 A/P Problem List: (1) Hypertension ICD Code: I10 - Essential (primary) hypertension (2) Primary osteoarthritis of right knee ICD Code: M17.11 - Unilateral primary osteoarthritis, right knee Status: Resolved (3) Status post total right knee replacement ICD Code: Z96.651 - Presence of right artificial knee joint Assessment and Plan 1. Osteoarthritis, right knee: Status post right total knee arthroplasty. Management per orthopedic surgery. Continue pain control, physical therapy, bowel regimen. 2. Hypertension: Blood pressure is well controlled. Continue lisinopril. 3. Glaucoma: Continue Xalatan eyedrops. 4. DVT prophylaxis: Aspirin. Hopefully discharge to home today if does well in orthopedics class Discharge Planning Discharged home with home health care Christiano Newell DO Mar 20, 2018 11:33
[2018-03-20] MEDS ORDERED: SENN187 PO (11:34)
[2018-03-20 11:36] VITALS: BP 133/74; PULSE 90; RESP 18; TEMP 97.3; O2SAT 98
[2018-03-20] MEDS ORDERED: DOCUSATE SODIUM 100 MG CAP PO SCH (21:00)
== END 2018-03-20 14:06 | disposition home health service (06) | DRG 470 ==
LOC: HSDI 05:20 → EDUNIT# 07:00 → N06A 11:55 → N06B 03-20 13:01
PROVIDERS: ADMIT Orthopaedic Surgery; ATTEND Orthopaedic Surgery
PROC: 0SRC0JA Replacement of Right Knee Joint with Synthetic Substitute, Uncemented, Open Approach (ICD-10-PCS; principal; 2018-03-19 06:34)
DX: M17.11 Unilateral primary osteoarthritis, right knee (principal); M21.169 Varus deformity, not elsewhere classified, unspecified knee; I10 Essential (primary) hypertension; H40.9 Unspecified glaucoma; Z79.82 Long term (current) use of aspirin; E66.9 Obesity, unspecified; Z68.34 Body mass index [BMI] 34.0-34.9, adult
CPT/HCPCS: 73560; 85014; 85018; 86850; 86900; 86901; 94150; C1776; C9290; J0131; J0690; J1100; J1580; J1885; J2250; J2270; J2370; J2405; J2710; J3010; J7120